=== PATIENT | male | born 1940 | race Caucasian/White ===

== ENCOUNTER 2022-06-21 22:55 | Observation (INO) ==
[2022-06-21] MEDS ORDERED: Iopamidol - 370 500 ML MLS IVP ONE (23:08)
[2022-06-21] MEDS ORDERED: Ondansetron 4 MG/2 ML VIAL IVP ONE (23:31)
[2022-06-21 23:32] LABS: Basophils % 0.3 %; Eosinophils # 0.2 K/mcL (0.0-0.6); Hemoglobin 12.6 g/dL (12.9-16.9); Immature Granulocytes % 0.4 % (0-4); Lymphocytes % 24.9 %; Mean Corpuscular HGB Conc 32.3 g/dL (31.6-35.5); Mean Corpuscular Hemoglobin 30.4 pg (28.0-33.3); Mean Corpuscular Volume 94.2 fL (83.0-100.0); Mean Platelet Volume 8.7 fL (9.4-12.4); Monocytes # 0.5 K/mcL (0.0-1.3); Monocytes % 5.9 %; Neutrophils # 5.3 K/mcL (1.6-8.9); Platelet Count 188 K/mcL (140-400); Red Blood Count 4.14 M/mcL (4.19-5.50); Red Cell Distribution Width 13.4 % (11.5-14.5); Segmented Neutrophils % 66.5 %; White Blood Count 7.9 K/mcL (4.3-11.1)
[2022-06-21 23:41] LABS: Prothrombin Time 11.2 Seconds (9.4-12.1)
[2022-06-21 23:45] LABS: Alanine Aminotransferase 14 Units/L (7-52); Albumin 4.2 g/dL (3.5-5.7); Albumin/Globulin Ratio 1.5 (1.1-2.2); Alkaline Phosphatase 63 Units/L (34-104); Aspartate Amino Transferase 14 Units/L (13-39); BUN/Creatinine Ratio 20 (6-26); Bilirubin,Total 0.5 mg/dL (0.3-1.0); Blood Urea Nitrogen 29 mg/dL (8-23); Calcium 9.8 mg/dL (8.6-10.3); Carbon Dioxide 23 mEq/L (23-29); Chloride 101 mEq/L (98-107); Globulin 2.8 g/dL (2.4-3.5); Glucose 195 mg/dL (70-105); Osmolality,Calculated 291 (280-300); Potassium 3.9 mEq/L (3.5-5.1); Sodium 135 mEq/L (136-145); Troponin I < 0.03 ng/mL (< 0.04)
[2022-06-22] MEDS ORDERED: Prochlorperazine 10 MG/2 ML VIAL IVP ONE (00:11)
[2022-06-22] MEDS ORDERED: diazePAM 10 MG/2 ML SYRINGE IVP ONE (02:03)
[2022-06-22] MEDS ORDERED: Ondansetron 4 MG/2 ML VIAL IVP PRN (02:26)
[2022-06-22] MEDS ORDERED: Acetaminophen 325 MG TABLET PO PRN (02:26)
[2022-06-22] MEDS ORDERED: Naloxone 0.4 MG/ML INJ IVP PRN (02:26)
[2022-06-22] MEDS ORDERED: D5% in Water 1,000 ML IVC PRN (02:54)
[2022-06-22] MEDS ORDERED: Dextrose Gel 15 GM/37.5 ML TUBE PO PRN ×2 (02:54)
[2022-06-22] MEDS ORDERED: *HR* Dextrose 50 % in Water (Syg) 50 ML SYRINGE IVP PRN (02:54)
[2022-06-22 06:51] LABS: Bilirubin,Urine Negative (Negative); Blood,Urine Negative (Negative); Clarity,Urine Clear (Clear); Color,Urine Light-Yellow (Yellow); Glucose,Urine (UA) 30 mg/dL (Normal); Ketones,Urine Trace mg/dL (Negative); Leukocyte Esterase,Urine Negative (Negative); Mucus,Urine Few per lpf (None-Few); Nitrite,Urine Negative (Negative); PH,Urine 7.5 pH Units (5.0-8.0); Protein,Urine 30 mg/dL (Neg-Trace); RBC,Urine 0-3 per hpf (0-3); Specific Gravity,Urine > 1.030 (1.010-1.025); Squamous Epithelial Cell,Urine Few per hpf (None-Few); WBC,Urine 0-3 per hpf (0-3)
[2022-06-22] MEDS: Insulin LISPRO 300 UNITS/3 ML VIAL SUBQ SCH ×3 (08:12→17:19)
[2022-06-22 08:24] LABS: Basophils % 0.3 %; Eosinophils # 0.1 K/mcL (0.0-0.6); Eosinophils % 0.8 %; Hematocrit 37.2 % (37.5-50.1); Hemoglobin 12.3 g/dL (12.9-16.9); Immature Granulocytes % 0.2 % (0-4); Lymphocytes # 1.8 K/mcL (0.6-4.6); Lymphocytes % 20.1 %; Mean Corpuscular HGB Conc 33.1 g/dL (31.6-35.5); Mean Corpuscular Hemoglobin 30.4 pg (28.0-33.3); Mean Corpuscular Volume 91.9 fL (83.0-100.0); Mean Platelet Volume 8.6 fL (9.4-12.4); Monocytes # 0.5 K/mcL (0.0-1.3); Monocytes % 5.6 %; Neutrophils # 6.4 K/mcL (1.6-8.9); Platelet Count 168 K/mcL (140-400); Red Blood Count 4.05 M/mcL (4.19-5.50); Red Cell Distribution Width 13.2 % (11.5-14.5); White Blood Count 8.8 K/mcL (4.3-11.1)
[2022-06-22] MEDS: lisinopriL 10 MG TABLET PO SCH (08:27)
[2022-06-22] MEDS: hydroCHLOROthiazide 25 MG TABLET PO SCH (08:27)
[2022-06-22] MEDS: FLUoxetine 20 MG CAPSULE PO SCH (08:27)
[2022-06-22] MEDS: *HR* Glimepiride 2 MG TABLET PO SCH (08:27)
[2022-06-22] MEDS: Aspirin Enteric Coated 81 MG Tablet PO SCH (08:28)
[2022-06-22 08:46] LABS: BUN/Creatinine Ratio 20 (6-26); Blood Urea Nitrogen 24 mg/dL (8-23); Calcium 9.5 mg/dL (8.6-10.3); Carbon Dioxide 27 mEq/L (23-29); Chloride 103 mEq/L (98-107); Cholesterol 131 mg/dL (< 200); Glucose 125 mg/dL (70-105); HDL Cholesterol 44 mg/dL (40-59); LDL Cholesterol,Calculated 60 mg/dL (< 100); Magnesium 1.5 mg/dL (1.6-2.6); Osmolality,Calculated 288 (280-300); Potassium 3.7 mEq/L (3.5-5.1); Sodium 136 mEq/L (136-145); Triglycerides 136 mg/dL (< 150); Troponin I < 0.03 ng/mL (< 0.04)
[2022-06-22 08:59] LABS: Thyroid Stimulating Hormone 0.944 mcIU/mL (0.340-5.600)
[2022-06-22 09:09] LABS: Folate 9.3 ng/mL (3.0-16.0)
[2022-06-22] MEDS: Cyanocobalamin (B-12) 1,000 MCG TABLET PO SCH (16:17)
[2022-06-23] MEDS ORDERED: *HR* Metformin 500 MG TABLET PO SCH (08:00)
[2022-06-23] MEDS: Insulin LISPRO 300 UNITS/3 ML VIAL SUBQ SCH ×3 (08:50→17:25)
[2022-06-23] MEDS: *HR* Glimepiride 2 MG TABLET PO SCH (08:51)
[2022-06-23] MEDS: Cyanocobalamin (B-12) 1,000 MCG TABLET PO SCH (08:51)
[2022-06-23] MEDS: FLUoxetine 20 MG CAPSULE PO SCH (08:51)
[2022-06-23] MEDS: lisinopriL 10 MG TABLET PO SCH (08:51)
[2022-06-23] MEDS: Aspirin Enteric Coated 81 MG Tablet PO SCH (08:51)
[2022-06-23] MEDS: hydroCHLOROthiazide 25 MG TABLET PO SCH (08:51)
[2022-06-23] MEDS: amLODIPine 5 MG TABLET PO SCH (10:58)
[2022-06-23] MEDS: Sucralfate 1 GM TABLET PO SCH (19:57)
[2022-06-24] MEDS: Insulin LISPRO 300 UNITS/3 ML VIAL SUBQ SCH ×4 (08:04→16:20)
[2022-06-24] MEDS: FLUoxetine 20 MG CAPSULE PO SCH (08:15)
[2022-06-24] MEDS: Cyanocobalamin (B-12) 1,000 MCG TABLET PO SCH (08:15)
[2022-06-24] MEDS: *HR* Metformin 500 MG TABLET PO SCH ×2 (08:16→19:17)
[2022-06-24] MEDS: lisinopriL 10 MG TABLET PO SCH (08:16)
[2022-06-24] MEDS: hydroCHLOROthiazide 25 MG TABLET PO SCH (08:16)
[2022-06-24] MEDS: amLODIPine 5 MG TABLET PO SCH (08:16)
[2022-06-24] MEDS: Aspirin Enteric Coated 81 MG Tablet PO SCH (08:17)
[2022-06-24] MEDS: *HR* Glimepiride 2 MG TABLET PO SCH (08:17)
[2022-06-24] MEDS: Sucralfate 1 GM TABLET PO SCH (20:26)
[2022-06-25 08:17] VITALS: BP 135/73; PULSE 73; TEMP 98.1; O2SAT 96
[2022-06-25] MEDS: lisinopriL 10 MG TABLET PO SCH (08:18)
[2022-06-25] MEDS: *HR* Glimepiride 2 MG TABLET PO SCH (08:19)
[2022-06-25] MEDS: FLUoxetine 20 MG CAPSULE PO SCH (08:19)
[2022-06-25] MEDS: amLODIPine 5 MG TABLET PO SCH (08:19)
[2022-06-25] MEDS: Aspirin Enteric Coated 81 MG Tablet PO SCH (08:19)
[2022-06-25] MEDS: Cyanocobalamin (B-12) 1,000 MCG TABLET PO SCH (08:19)
[2022-06-25] MEDS: *HR* Metformin 500 MG TABLET PO SCH ×2 (08:19→16:52)
[2022-06-25] MEDS: hydroCHLOROthiazide 25 MG TABLET PO SCH (08:19)
[2022-06-25] MEDS: Insulin LISPRO 300 UNITS/3 ML VIAL SUBQ SCH ×3 (08:20→16:52)
[2022-06-25 15:46] LABS: Adenovirus Not Detected (Not Detect); Bordetella Pertussis Not Detected (Not Detect); Chlamydophila pneumoniae Not Detected (Not Detect); Coronavirus 229E Not Detected (Not Detect); Coronavirus HKU1 Not Detected (Not Detect); Coronavirus NL63 Not Detected (Not Detect); Coronavirus OC43 Not Detected (Not Detect); Human Metapneumovirus Not Detected (Not Detect); Human Rhinovirus/Enterovirus Not Detected (Not Detect); Influenza A Subtype 2009 H1 Not Detected (Not Detect); Influenza B Not Detected (Not Detect); Mycoplasma pneumoniae Not Detected (Not Detect); Parainfluenza Virus 1 Not Detected (Not Detect); Parainfluenza Virus 2 Not Detected (Not Detect); Parainfluenza Virus 3 Not Detected (Not Detect); Parainfluenza Virus 4 Not Detected (Not Detect); Respiratory Syncytial Virus Not Detected (Not Detect); SARS-CoV-2 Not Detected (Not Detect)
== END 2022-06-25 18:11 ==
LOC: EMEROOARM 22:55 → 3NENU 22:55 → SUATTDRO 06-22 02:25 → 3NENU 06-22 03:35
PROVIDERS: ADMIT Internal Medicine; ATTEND Internal Medicine